=== PATIENT | male | born 1960 | race Caucasian/White ===

== ENCOUNTER 2023-07-06 13:38 | Outpatient (POV) | payer BC, SELFPAY ==
--- OUTSIDE RECORDS SUMMARY | 2023-07-06 13:43 | XMS_ITS ---
Author Name Unknown Address [address] [place] [address] Phone Organization [facility] Address [address] [place] [address] Phone Care Team Providers Care Reception Centre Manager Name Role Phone NO, PCP Unavailable Unavailable Dhruv STEVENS, David Lundberg Unavailable [phone] Problems Includes: Active, inactive, and resolved Problems All Visits Onset Date Resolved Date Provider Condition S tatus Bone Pain Right Fingers 01/10/2022 David Bartlett MD Active Last Documented On 2 12:55PM ; [facility] Pain in the Right Hand Only 01/10/2022 David Bartlett MD Active Last Documented On 2 12:54PM ; [facility], [facility] Plan of Treatment Instructions to patient Lose weight Last Documented On 2 1:51PM ; [facility], [facility] Lose weight Last Documented On 2 12:54PM ; [facility], [facility] Lose weight Last Documented On 2 1:15PM ; [facility], [facility] Assessments Includes: Assessments for all patient encounters No Assessments Recorded Instructions Includes: Instructions for all patient encounters Instructions to patient Lose weight Last Documented On 2 1:51PM ; [facility] Lose weight Last Documented On 2 12:54PM ; [facility], [facility] Lose weight Last Documented On 2 1:15PM ; [facility], [facility] Medical Equipment - Implanted Devices Includes: Current and historical Devices No Medical Equipment Recorded Medications Includes: Current and historical Medications Current Medications (continue as prescribed) Cephalexin 500 MG Oral Capsule 01/06/2022 Provider: Elham SANDOVAL Diagnosis: Last Documented On 12:54PM By Dr. Bartlett ; [facility], [facility] OneTouch Delica Plus [id number] Miscellaneous Provider: Dillon Lindquist MD Diagnosis: Last Documented On 12:55PM By Dr. Bartlett ; [facility], [facility] Diclofenac Sodium 1% External Gel 12/31/2021 Provide r: Diagnosis: Last Documented On 12:55PM By Dr. Bartlett ; [facility], [facility] Vitamin D High Potency 25 MCG (1000 UT) Oral Capsule 0 12/09/2021 Provider: Diagnosis: Last Documented On 12:56PM By Ashley Glass ; [facility], [facility] Cyclobenzaprine HCl 10 MG Oral Tablet 12/06/2021 Pro vider: Diagnosis: Last Documented On 2 12:56PM By Ashley Glass ; [facility], [facility] hydroCHLOROthiazide 25 MG Oral Tablet 12/06/2021 Pro vider: Diagnosis: Last Documented On 12:56PM By Ashley Glass ; [facility], [facility] Omeprazole 20 MG Oral Capsule Delayed Release 12/07/19 Provider: Diagnosis: Last Documented On 2 12:56PM By Ashley Glass ; [facility], [facility] Lisinopril 20 MG Oral Tablet 10/13/2021 Provider: Diagnosis: Last Documented On 2 12:56PM By Ashley Glass ; [facility], [facility] Albuterol Sulfate HFA 108 (9 0 Base) MCG/ACT Inhalation Aerosol Solution 09/11/2021 Provider: Diagnosis: Last Documented On 12:56PM By Ashley Glass ; [facility], [facility] Past Medications on file Cephalexin 500 MG Oral Capsule 01/06/2022 - 01/10/2022 Provider: Elham SANDOVAL Diagnosis: Last Documented On 2 1:16PM By Ashley Glass ; [facility], [facility] Diclofenac Sodium 1% External Gel 12/31/2021 - 022 Provider: Diagnosis: Last Documented On 2 1:16PM By Ashley Glass ; [facility], [facility] Vitamin D High Potency 25 MC G (1000 UT) Oral Capsule 12/09/2021 - 01/10/2022 Provider: Diagnosis: Last Documented On 2 1:16PM By Ashley Glass ; [facility], [facility] hydroCHLOROthiazide 25 MG Oral Tablet 12/06/2021 - Provider: Diagnosis: Last Documented On 2 1:16PM By Ashley Glass ; [facility], [facility] Omeprazole 20 MG Oral Capsule Delayed Release 12/07/19 22 - 01/10/2022 Provider: Diagnosis: Last Documented On 2 1:16PM By Ashley Glass ; [facility] Medications Administered Includes: Administered Medications in patient's chart No Administered Medications Recorded Results Includes: Results from 07/05/2022 through 07/06/2023 No Results Recorded For Specified Dates History of Present Illness History of Present Illness not supported for this document type No History of Present Illness Recorded Social History Description Last Updated Caffeine use 01/10/2022 Last Documented On 2 3:08PM ; [facility], [facility] No recent change in diet 01/10/2022 Last Documented On 2 3:08PM ; [facility], [facility] Not a current smoker. 01/10/2022 Last Documented On 2 3:08PM ; [facility] Not exercising regularly 01/10/2022 Last Documented On 2 3:08PM ; [facility] Not using alcohol 01/10/2022 Last Documented On 2 3:08PM ; [facility] Not using drugs 01/10/2022 Last Documented On 2 3:08PM ; [facility] Tobacco non-user 01/10/2022 Last Documented On 2 3:08PM ; [facility], [facility] Smoking Status Unknown Procedures and Surgical History Surgical History Last Updated History of hernia repair 01/10/2022 Last Documented On 2 3:08PM ; [facility] Medical History Includes: Medical History in patient's chart Description Last Updated History of Hypertension 01/10/2022 Last Documented On 2 3:08PM ; [facility] Past Surgical History: cariodid tumor Last Documented On 2 3:08PM ; [facility] No recent immunization for flu 2 Last Documented On 2 3:08PM ; [facility] No recent immunization for pneumococcal pneumonia 01/10/2022 Last Documented On 2 3:08PM ; [facility] Family History Includes: Family History in patient's chart Description Last Updated Diabetes mellitus 01/10/2022 Last Documented On 2 3:08PM ; [facility] Family history of cancer 01/10/2022 Last Documented On 2 3:08PM ; [facility] Family history of heart disease 01/11/20 22 Last Documented On 2 3:08PM ; [facility] Family history of systemic hypertension 01/10/2022 Last Documented On 2 3:08PM ; [facility] Review of Systems Review of Systems not supported for this document type No Review of Systems Recorded Mental Status Description No anxiety Functional Status No Functional Status Recorded Physical Exam Physical Exam not supported for this document type No Physical Exam Recorded Immunizations Includes: Immunizations in patient's chart Vaccine Dose # Date Site Reaction(s) Status Source Influenza 1 01/10/2022 Complete (Refused - Patient objection) [facility] Last Documented On 2 1:15PM ; [facility] Allergies Includes: Active, inactive, and resolved Allergies Substance Type Reaction Onset Date Resolved Date Statu s Tetracycline HCl Allergy Skin Rashes / E ruption of skin, Hives / Urticaria, Shortness of Breath / Dyspnea 01/10/2022 Active Last Documented On 2 1:50PM ; [facility] metFORMIN HCl Allergy Nausea, Vomiting , Diarrhea / Diarrheal disorder 01/10/2022 Active Last Documented On 2 1:50PM ; [facility], [facility] Insurance Includes: Active Insurance Policies Plan Name Member ID Group # Subscriber Relationship Effect [id number] Dates 1 - STRATEGIC COMP [id number] Deng Santino Self 01/01/2022 - Unknown Clinical Notes Includes: Signed Clinical Notes starting from 03/03/2022 No Clinical Notes Recorded
--- OUTSIDE RECORDS SUMMARY | 2023-07-06 13:43 | XMS_ITS | Clinical Summary ---
Author Name Unknown Address [address] [place] [address] Phone Organization [facility] Address [address] [place] [address] Phone Care Team Providers Care Finishing Operator Name Role Phone Status, Fax Unavailable Conditions or Problems Problem Name Problem Code Onset Date Status Entry Date Provider Comment Standard Description Annotate HEPATITIS 604527329 (SNOMED CT) 04/08 Active 04/08 Beny Wooten MD Inflammatory disease of liver FATIGUE 77226864 (SNOMED CT) Active Julia Soriano Fatigue NIGHT SWEATS 38930379 (SNOMED CT) Active Julia Soriano Night sweats LUNG CALCIFICATION J98.4 (ICD-10-CM) Active Julia Soriano Other disorders of lung Medications Medication Instructions Start Date Stop Date Generic Name ND Provider LIVALO 2 MG TABS PITAVASTATIN CALCIUM [id number] Beny Wooten MD BECONASE AQ SUSPENSION 12/25 BECLOMETHASONE DIPROP MONOHYD SUSP [id number] Beny Wooten MD NAPROSYN TABS 12/25 NAPROXEN TABS [id number] Beny Wooten MD BECONASE AQ SUSPENSION 06/18 BECLOMETHASONE DIPROP MONOHYD SUSP [id number] Staci Gilliam NAPROSYN TABS 12/25 NAPROXEN TABS [id number] Staci Gilliam CETIRIZINE HCL TABS CETIRIZINE HCL TABS [id number] Staci Gilliam KLOR-CON CR-TABS POTASSIUM CHLORIDE CR-TABS [id number] Staci Gilliam FIORICET TABS [id number] EINE TABS [id number] Staci Gilliam NASONEX SUSPENSION MOMETASONE FUROATE SUSP 92997574957 Staci Gilliam LISINOPRIL TABS LISINOPRIL TABS [id number] Staci Gilliam ASPIRIN TABS ASPIRIN TABS [id number] Staci Gilliam PATANOL SOLUTION OLOPATADINE HCL SOLN [id number] Staci Gilliam HYDROCHLOROTHIAZIDE TABS HYDROCHLOROTHIAZIDE TABS [id number] Staci Gilliam Medications Administered No information available. 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33 10*3/uL 0.10-0.30 H Eosinophi ls [#/volume] in Blood MONOCYTABMAN 0.81 K/MCL {Cells}/ uL 0.00-1.00 N monocytes, absolute, manual LYMPHSABSMAN 3.14 K/MCL {Cells}/ uL 0.60-4.80 N lymphocytes, absolute, manual ABS NEUTROPH 8.68 10*3/uL 1.50-8.30 H Neutro phils [#/volume] in Blood PLATELETS 175 10*3/mm3 150-450 N Platelets [#/volume] in Blood by Automated count RDW_ 12.1 11.3-14.5 N RDW, no uni ts MCHC 36.2 G/DL 32.0-36.0 H MCHC [Mass/ volume] by Automated count MCH 32.1 pg 27.0-31.0 H MCH [Entiti c mass] by Automated count MCV 88.8 fL 80.0-99.0 N MCV [Entiti c volume] by Automated count HCT 45.9 % 38.9-50.9 N Hematocrit [Volume Fraction] of Blood by Automated count HGB 16.6 g/dL 13.1-17.5 N Hemoglobin [Mass/volume] in Blood RBC 5.17 M/MCL 10*6/mm3 4.20-5.76 N Erythro cytes [#/volume] in Blood by Automated count WBC 13.09 10*3/mm3 3.50-10.80 H Leukocyte s [#/volume] in Blood by Automated count Lab Report: ESR (Sed Rate) ESR 3 mm/h 0-15 N Erythrocyte sedimentation rate by Westergren method Lab Report: Comprehensive Me tabolic Panel ANIONGAP 6 mmol/L 3-11 N anion gap, s farhana GFRC 114 mL/min/1 .73m2 Glomerular Filtration Rate Calculation ALBUMIN 5.0 g/dL 3.4-4.8 H Albumin [Mass/volume] in Serum or Plasma BILI TOTAL 0.8 mg/dL 0.3-1.2 N Bilirubin. total [Mass/volume] in Serum or Plasma SGPT (ALT) 70 U/L 7-40 H Alanine aminotransferase [Enzymatic activity/volume] in Serum or Plasma SGOT (AST) 42 U/L 8-33 H Aspartate aminotransferase [Enzymatic activity/volume] in Serum or Plasma ALK PHOS 67 U/L 25-100 N Alkaline phosphatase [Enzymatic activity/volume] in Blood CALCIUM 10.0 mg/dL 8.7-10.4 N Calcium [Moles/volume] in Serum or Plasma CO2 35 mmol/L 20-31 H Carbon dioxid e, total [Moles/volume] in Venous blood CHLORIDE 97 mmol/L 98-107 L Chloride [Moles/volume] in Serum or Plasma POTASSIUM 3.3 mmol/L 3.4-5.4 L Potassium [Moles/volume] in Serum or Plasma SODIUM 138 mmol/L 136-145 N Sodium [Moles/volume] in Serum or Plasma CREATININE 0.8 mg/dL 0.6-1.3 N Creatinine [Mass/volume] in Serum or Plasma BUN 14 mg/dL 6-20 N Urea nitrogen [Mass/volume] in Serum or Plasma GLUCOSE SER 74 mg/dL 70-100 N Glucose [Mass/volume] in Serum or Plasma Lab Report: Ferritin FERRITIN 524 ng/mL 22-322 H Ferritin [Mass/volume] in Serum or Plasma Lab Report: C-Reactive Prote in CRPCARDRISK 5.300 mg/L 0.000-10.0 N C reac tive protein [Mass/volume] in Serum or Plasma Lab Report: Blastomyces Anti gen, QuantiFERON TB Gold (In Tube), QuantiFE ... ANASCR IFA Negative JOSEPH SCREE N, IFA HIS AG UR 0.00 EU {EIA'U} Histoplasma capsulatum Ag [Units/volume] in Urine by Immunoassay TB QUANT Negative Negative Mycobacter ium tuberculosis stimulated gamma interferon [Interpretation] in Blood Qualitative Lab Report: Angiotensin-Conv erting Enzyme, Written Authorization ADRI 13 U/L 12-68 Angiotensin converting enzyme [Enzymatic activity/volume] in Serum or Plasma Lab Report: CINDY and PE, Seru m, Panel [id number], Hep B Surface Ab, HCV Antib ... ANTI-HAV Positive Negative A Hepatitis A virus Ab [Presence] in Serum HBSAGC Negative Negative Hepatitis B virus surface Ag [Presence] in Serum or Plasma by Confirmatory method RPR Non Reactive NonRea<1:1 Reagi n Ab [Units/volume] in Serum by VDRL [id number] <0.1 s/co ratio 0.0-0.9 GE use only - fo r [employer] import when terms are not otherwise specified HIV AB Non Reactive Non Reactive HIV 1 p15+p18 Ab [Presence] in Serum by Immunoblot IMMUNOFIX IFENOR immunofixat ion electrophoresis, serum A/G RATIO 1.4 0.7-2.0 Albumin/Zak bulin [Mass Ratio] in Serum or Plasma GLOBULIN TOT 3.4 g/dL 2.0-4.5 Globulin [Mass/volume] in Serum M.SPIKE Not Observed Not Observed gamma globulin, serum, monoclonal spike GAMMA GLOB 1000 mg/dL Units converted. See lab report for original value. Gamma globulin [Mass/volume] in Serum or Plasma by Electrophoresis BETA GLOBUL 1.3 g/dL 0.6-1.3 Beta glob ulin [Mass/volume] in Serum or Plasma by Electrophoresis ALPHA 2 GLOB 0.7 g/dL 0.4-1.2 Alpha 2 globulin [Mass/volume] in Serum or Plasma by Electrophoresis ALPHA 1 GLOB 0.3 g/dL 0.1-0.4 Alpha 1 globulin [Mass/volume] in Serum or Plasma by Electrophoresis ALBUMIN EOP 4.7 g/dL 3.2-5.6 Albumin [Mass/volume] in Serum or Plasma by Electrophoresis PROTEIN, TOT 8.1 g/dL 6.0-8.5 Protein [Mass/volume] in Serum or Plasma IGM SERUM 189 mg/dL 40-230 IgM, serum IGA SERUM 248 mg/dL 91-414 IgA, serum IGG SERUM 906 mg/dL 700-1600 IgG, serum Lab Report: Protein Electro, Random Urine GLOBULIN UR 26.9 % gamma zak bulin, urine BETA UR PE 28.5 % beta globu fermin, urine, by electrophoresis ALPH-2 UR PE 17.5 % alpha-2 globulin, urine by electrophoresis ALPH-1 UR PE 2.6 % alpha-1 globulin, urine, by electrophoresis ALBUMIN, UR 24.5 % albumin, urine PROTEIN UR 8.5 mg/dL 0.0-15.0 Protein [ Mass] in Urine collected for unspecified duration Office Visit: 6 DIET RULES EXAMINER yes Dietary management education, guidance, and counseling (procedure) MEDS REVIEW Done Documenta tion of current medications (procedure) Lab Report: Culture Fungus B lood CULTURE Specimen: Blood culture, comment Plan of Care Type Date Detail Pending order Other Pending order HIV By MIGUEL ÁNGEL Pending order Hep C AB Pending order Hep B Surface AG Pending order Hep B Surface AB Pending order Hep A Total AB Pending order RPR Pending order C- reactive prot ein Pending order Sedimentation Ra te (ESR) Pending order Blood Cultures X 2 Pending order CMP Pending order CBC with Differe ntial Pending order JOSEPH Pending order Ferritin Level Pending order ADRI Pending order TSH Pending order Histoplasmosis U rinary AG Pending order Blastomyces Urin coty Antigen Pending order Quantiferon Gold TB Assay Pending order Other Procedures Code Procedure Name Date Entry Date CPT-LAB Other CPT-53482 HIV By MIGUEL ÁNGEL CPT-90673 Hep C AB CPT-56854 Hep B Surface AG CPT-41320 Hep B Surface AB CPT-50868 Hep A Total AB CPT-66731 RPR CPT-03099 C- reactive protein CPT-42108 Sedimentation Rate (ESR) 201 05/28/07 CPT-bcx2 Blood Cultures X2 CPT-93295 CMP CPT-69417 CBC with Differential CPT-12796 JOSEPH CPT-48580 Ferritin Level CPT-22809 ADRI CPT-33854 TSH CPT-02323 Histoplasmosis Urinary AG 20 31/12/07 CPT-18258 Blastomyces Urinary Antigen CPT-07854 Quantiferon Gold TB Assay 20 31/12/07 CPT-LAB Other Vital Signs Date Name Value Unit Description BMI (Body Mass Index) 34.88 kg/m2 Bod y Mass Index (Ratio) Body Temperature 98.0 [degF] temperat ure E&M BP Diastolic 78 mm[Hg] blood pressu re, diastolic BP Systolic 112 mm[Hg] blood pressur e, systolic Heart Rate 80 /min pulse rate Height 63 [in_us] height E&M Respiratory Rate 20 /min respirat ory rate E&M Weight Measured 196.2 [lb_av] weight E& M Immunizations No information available. Advance Directives No information available.
--- OUTSIDE RECORDS SUMMARY | 2023-07-06 13:44 | XMS_ITS | Clinical Summary ---
Author Name Unknown Address [address] [place] [address] Phone Organization [facility] Address [address] [place] [address] Phone Care Team Providers Care Floral Designer Name Role Phone NO, PCP Unavailable Unavailable Dhruv STEVENS, David Lundberg Unavailable [phone] Reason for Visit and Chief Complaint The Chief Complaint is: RLF and RRF pain Problems Includes: Problems addressed during this encounter and other active Problems Current Visit Onset Date Resolved Date Provider Neva bernal Status Bone Pain Right Fingers 01/10/2022 David Bartlett MD Active Last Documented On 2 12:55PM ; [facility] Pain in the Right Hand Only 01/10/2022 David Bartlett MD Active Last Documented On 2 12:54PM ; [facility] Plan of Treatment I explained to the patient that he does have a tuft fracture of the distal phalanx RRF and contusion RLF. We discussed the course of treatment including splinting. We will order placement of a mallet splint from OT for the RRF. We will place the patient on no use of the RUE at work. We will see him back in 2 weeks for recheck. - Last Documented On 01/16/2022 3:08PM ; [facility] Pending Tests Order Diagnosis Results Due Ordering P rovider Therapy - Occupational Therapy Finger 01/10 David Bartlett MD Last Documented On 2 3:08PM ; [facility] Instructions to patient Lose weight Last Documented On 2 1:15PM ; [facility] Assessments Includes: Assessments from this encounter Findings RRF tuft fx distal phalanx - Last Documented On 01/16/2022 3:08PM ; [facility] contusion RLF - Last Documented On 01/16/2022 3:08PM ; [facility] Instructions Includes: Instructions from this encounter Instructions to patient Lose weight Last Documented On 2 1:15PM ; [facility] Medical Equipment - Implanted Devices Includes: Current Devices No Medical Equipment Recorded Medications Includes: Medications discussed during this encounter and other current Medications Discontinued / Stopped on this date Elham SANDOVAL on 01/06/2022 Cephalexin 500 MG Oral Capsule Provider: Elham SANDOVAL Diagnosis: Last Documented On 2 1:16PM By Ashley Glass ; [facility] Diclofenac Sodium 1% External Gel Provide r: Diagnosis: Last Documented On 2 1:16PM By Ashley Glass ; [facility] Vitamin D High Potency 25 MCG (1000 UT) Oral Capsule Provider: Diagnosis: Last Documented On 2 1:16PM By Ashley Glass ; [facility] hydroCHLOROthiazide 25 MG Oral Tablet Pro vider: Diagnosis: Last Documented On 2 1:16PM By Ashley Glass ; [facility] Omeprazole 20 MG Oral Capsule Delayed Release Provider: Diagnosis: Last Documented On 2 1:16PM By Ashley Glass ; [facility] Current Medications (continue as prescribed) Cephalexin 500 MG Oral Capsule 01/06/2022 Provider: Elham SANDOVAL Diagnosis: Last Documented On 12:54PM By Dr. Bartlett ; [facility] OneTouch Delica Plus [id number] Miscellaneous Provider: Dillon Lindquist MD Diagnosis: Last Documented On 12:55PM By Dr. Bartlett ; [facility] Diclofenac Sodium 1% External Gel 12/31/2021 Provide r: Diagnosis: Last Documented On 10/24/202 2 12:55PM By Dr. Bartlett ; [facility] Vitamin D High Potency 25 MCG (1000 UT) Oral Capsule 0 12/09/2021 Provider: Diagnosis: Last Documented On 12:56PM By Ashley Glass ; [facility] Cyclobenzaprine HCl 10 MG Oral Tablet 12/06/2021 Pro vider: Diagnosis: Last Documented On 12:56PM By Ashley Glass ; [facility] hydroCHLOROthiazide 25 MG Oral Tablet 12/06/2021 Pro vider: Diagnosis: Last Documented On 12:56PM By Ashley Glass ; [facility] Omeprazole 20 MG Oral Capsule Delayed Release 12/07/19 Provider: Diagnosis: Last Documented On 12:56PM By Ashley Glass ; [facility] Lisinopril 20 MG Oral Tablet 10/13/2021 Provider: Diagnosis: Last Documented On 12:56PM By Ashley Glass ; [facility] Albuterol Sulfate HFA 108 (9 0 Base) MCG/ACT Inhalation Aerosol Solution 09/11/2021 Provider: Diagnosis: Last Documented On 12:56PM By Ashley Glass ; [facility] Medications Administered Includes: Administered Medications from this encounter No Administered Medications Recorded Vital Signs Includes: Vital Signs from this encounter Vital Name 01/10/2022 01:12P Blood Pressure Sitting (mmHg) 118/71 Pulse Rate-Sitting (bpm) 105 Height (in) 63 Weight (lb) 199.8 Body Mass Index (kg/m2) 35.4 Body Surface Area (m2) 1.9 Note: [facility] Last Documented: On 01/10/2022 1:15PM ; [facility] Results Includes: Results discussed during this encounter No Results Recorded For Specified Dates History of Present Illness Includes: History of Present Illness from this encounter KADY De is a 61 year old male. 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 Patient is a 61 year old male that is here today with complaints of pain in the RRF and RLF. He states on 01/01/22 he was at work when he raised one eng of a part with left hand to move a block with his right hand when the part slipped out of left hand catching R hand between the part and the block. He was seen at [facility] where xrays were obtained and the laceration of the RRF was sutured. Social History Description Last Updated Caffeine use 01/10/2022 Last Documented On 2 3:08PM ; [facility] No recent change in diet 01/10/2022 Last Documented On 2 3:08PM ; [facility] Not a current smoker. 01/10/2022 Last Documented On 2 3:08PM ; [facility] Not exercising regularly 01/10/2022 Last Documented On 2 3:08PM ; [facility] Not using alcohol 01/10/2022 Last Documented On 2 3:08PM ; [facility] Not using drugs 01/10/2022 Last Documented On 2 3:08PM ; [facility] Tobacco non-user 01/10/2022 Last Documented On 2 3:08PM ; [facility] Smoking Status Unknown Procedures and Surgical History Includes: Procedures from this encounter Procedures Code Diagnosis Performing Provider Service L ocation Service Date use of tobacco assessment performed 1000F Last Documented On 2 12:55PM ; [facility] no influenza immunization patient refuse d Last Documented On 2 1:15PM ; [facility] an X-ray was performed 41224 Last Documented On 2 1:50PM ; [facility] History of Blood Tests Last Documented On 2 1:50PM ; [facility] Surgical History Last Updated History of hernia repair 01/10/2022 Last Documented On 2 3:08PM ; [facility] Medical History Includes: Medical History addressed during this encounter Description Last Updated History of Hypertension 01/10/2022 Last Documented On 2 3:08PM ; [facility] Past Surgical History: cariodid tumor Last Documented On 2 3:08PM ; [facility] No recent immunization for flu 2 Last Documented On 2 3:08PM ; [facility] No recent immunization for pneumococcal pneumonia 01/10/2022 Last Documented On 2 3:08PM ; [facility] Family History Includes: Family History addressed during this encounter Description Last Updated Diabetes mellitus 01/10/2022 Last Documented On 2 3:08PM ; [facility] Family history of cancer 01/10/2022 Last Documented On 2 3:08PM ; [facility] Family history of heart disease 01/11/20 Last Documented On 2 3:08PM ; [facility] Family history of systemic hypertension 01/10/2022 Last Documented On 2 3:08PM ; [facility] Review of Systems Includes: Review of Systems from this encounter Systemic: Not feeling tired, no recent weight loss, and no recent weight gain. Head: No headache and no sinus pain. Eyes: No vision problems, no Cataracts, no Glasses/Contacts, and no Glaucoma. Otolaryngeal: No hearing loss and no tinnitus. Cardiovascular: No chest pain or discomfort and no palpitations. Hypertension. No High Cholesterol. Pulmonary: No daytime asthma symptoms and no chronic cough. No wheezing. Gastrointestinal: No heartburn and no abdominal pain. No Indigestion, no Acid Reflux, no Peptic Ulcer, no GI Stomach Bleed, and no Ulcers. Endocrine: No hot flashes, no muscle weakness, no Diabetes, no Hypothyroid, and no Hyperthyroid. Hematologic: No easy bleeding, no tendency for easy bruising, and no Anemia. Musculoskeletal: No Arthritis and no lower back pain. No soft tissue swelling and no localized joint pain. Neurological: No dizziness, no convulsions, and no numbness. Psychological: No anxiety, no emotional lability, no depression, and no insomnia. Not crying for no reason. Skin: No dry skin. No Ulcers, no Scars, and no rash. Allergic and Immunologic: Complaint of seasonal allergic reaction. The patient is awake alert oriented in time place and person. Has normal mood and affect. Is neatly dressed. Has normal gait and station. Pupils are equal and react to light normally. Eyes move normally. Mucous membranes are moist. The patient has no trouble with speech. Normal circulation. Normal sensation. No thenar or intrinsic atrophy. Normal strength. Laceration top of the RRF that is sutured. No sign of infection. There is tenderness over the fracture site. Patient has a contusion RLF with a small subungual hematoma RLF. Mental Status Includes: Mental Status from this encounter Description No anxiety Functional Status Includes: Functional Status from this encounter No Functional Status Recorded Physical Exam Includes: Physical Exam from this encounter Immunizations Includes: Immunizations addressed during this encounter Vaccine Dose # Date Site Reaction(s) Status Source Influenza 1 01/10/2022 Complete (Refused - Patient objection) [facility] Last Documented On 2 1:15PM ; [facility] Allergies Includes: Active Allergies Substance Type Reaction Onset Date Resolved Date Statu s Tetracycline HCl Allergy Skin Rashes / E ruption of skin, Hives / Urticaria, Shortness of Breath / Dyspnea 01/10/2022 Active Last Documented On 2 1:50PM ; [facility] metFORMIN HCl Allergy Nausea, Vomiting , Diarrhea / Diarrheal disorder 01/10/2022 Active Last Documented On 2 1:50PM ; [facility] Encounters Encounter Provider Location Date Check-In Time Check-Out Time Diagnosis WC NEW PATIENT David Bartlett MD [facility] 01/11/20 22 1:05PM 1:42PM Insurance Includes: Active Insurance Policies Plan Name Member ID Group # Subscriber Relationship Effect janneth Dates 1 - STRATEGIC COMP [id number] Deng De Self 01/01/2022 - Unknown Clinical Notes Includes: Clinical Notes from this encounter No Clinical Notes Recorded
--- OUTSIDE RECORDS SUMMARY | 2023-07-06 13:44 | XMS_ITS | Clinical Summary ---
Author Name Unknown Address [address] [place] [address] Phone Organization [facility] Address [address] [place] [address] Phone Care Team Providers Care Director Of Cloud Services Name Role Phone NO, PCP Unavailable Unavailable Dhruv STEVENS, David Lundberg Unavailable [phone] Reason for Visit and Chief Complaint The Chief Complaint is: RLF and RRF pain Problems Includes: Problems addressed during this encounter and other active Problems All Visits Onset Date Resolved Date Provider Condition S tatus Bone Pain Right Fingers 01/10/2022 David Bartlett MD Active Last Documented On 2 12:55PM ; [facility] Pain in the Right Hand Only 01/10/2022 David Bartlett MD Active Last Documented On 2 12:54PM ; [facility], [facility] Plan of Treatment Patient is doing well and the fracture is healing. We will continue his work restrictions, continue the splint, and we will see him back in 2 weeks for recheck. We will not need an xray at this visit. - Last Documented On 01/25/2022 11:31AM ; [facility], [facility] Instructions to patient Lose weight Last Documented On 2 12:54PM ; [facility], [facility] Assessments Includes: Assessments from this encounter Findings RRF distal phalanx tuft fx - Last Documented On 01/25/2022 11:31AM ; [facility], [facility] Instructions Includes: Instructions from this encounter Instructions to patient Lose weight Last Documented On 2 12:54PM ; [facility] Medical Equipment - Implanted Devices Includes: Current Devices No Medical Equipment Recorded Medications Includes: Medications discussed during this encounter and other current Medications Current Medications (continue as prescribed) Cephalexin 500 MG Oral Capsule 01/06/2022 Provider: Elham SANDOVAL Diagnosis: Last Documented On 12:54PM By Dr. Bartlett ; [facility] OneTouch Delica Plus [id number] Miscellaneous Provider: Dillon Lindquist MD Diagnosis: Last Documented On 12:55PM By Dr. Bartlett ; [facility], [facility] Diclofenac Sodium 1% External Gel 12/31/2021 Provide r: Diagnosis: Last Documented On 12:55PM By Dr. Bartlett ; [facility], [facility] Vitamin D High Potency 25 MCG (1000 UT) Oral Capsule 0 12/09/2021 Provider: Diagnosis: Last Documented On 12:56PM By Ashley Glass ; [facility] Cyclobenzaprine HCl 10 MG Oral Tablet 12/06/2021 Pro vider: Diagnosis: Last Documented On 12:56PM By Ashley Glass ; [facility] hydroCHLOROthiazide 25 MG Oral Tablet 12/06/2021 Pro vider: Diagnosis: Last Documented On 12:56PM By Ashley Glass ; [facility] Omeprazole 20 MG Oral Capsule Delayed Release 12/07/19 Provider: Diagnosis: Last Documented On 12:56PM By Ashley Glass ; [facility] Lisinopril 20 MG Oral Tablet 10/13/2021 Provider: Diagnosis: Last Documented On 12:56PM By Ashley Glass ; [facility] Albuterol Sulfate HFA 108 (9 0 Base) MCG/ACT Inhalation Aerosol Solution 09/11/2021 Provider: Diagnosis: Last Documented On 12:56PM By Ashley Glass ; [facility] Medications Administered Includes: Administered Medications from this encounter No Administered Medications Recorded Vital Signs Includes: Vital Signs from this encounter Vital Name 01/24/2022 01:02P Blood Pressure Sitting (mmHg) 125/77 Pulse Rate-Sitting (bpm) 65 Height (in) 63 Weight (lb) 201.2 Body Mass Index (kg/m2) 35.6 Body Surface Area (m2) 1.9 Note: [facility] Last Documented: On 01/24/2022 1:05PM ; [facility] Results Includes: Results discussed during this encounter No Results Recorded For Specified Dates History of Present Illness Includes: History of Present Illness from this encounter KADY De is a 61 year old male. - Allergy list reviewed - Problem list reviewed - Medication list reviewed Patient is here today for follow-up for his right ring finger tuft fracture. He is doing well today. His injury occurred on 01/01/2022. Social History Description Last Updated Caffeine use 01/10/2022 Last Documented On 2 12:54PM ; [facility] No recent change in diet 01/10/2022 Last Documented On 2 12:54PM ; [facility] Not a current smoker. 01/10/2022 Last Documented On 2 12:54PM ; [facility] Not exercising regularly 01/10/2022 Last Documented On 2 12:54PM ; [facility] Not using alcohol 01/10/2022 Last Documented On 2 12:54PM ; [facility] Not using drugs 01/10/2022 Last Documented On 2 12:54PM ; [facility] Tobacco non-user 01/10/2022 Last Documented On 2 12:54PM ; [facility], [facility] Smoking Status Unknown Procedures and Surgical History Includes: Procedures from this encounter Procedures Code Diagnosis Performing Provider Service L ocation Service Date use of tobacco assessment performed 1000F Last Documented On 2 12:54PM ; [facility] no influenza immunization patient refuse d Last Documented On 2 12:54PM ; [facility] Surgical History Last Updated History of hernia repair 01/10/2022 Last Documented On 2 12:54PM ; [facility] Medical History Includes: Medical History addressed during this encounter Description Last Updated History of Hypertension 01/10/2022 Last Documented On 2 12:54PM ; [facility], [facility] Past Surgical History: cariodid tumor Last Documented On 2 12:54PM ; [facility], [facility] No recent immunization for flu 2 Last Documented On 2 12:54PM ; [facility] No recent immunization for pneumococcal pneumonia 01/10/2022 Last Documented On 2 12:54PM ; [facility], [facility] Family History Includes: Family History addressed during this encounter Description Last Updated Diabetes mellitus 01/10/2022 Last Documented On 2 12:54PM ; [facility] Family history of cancer 01/10/2022 Last Documented On 2 12:54PM ; [facility], [facility] Family history of heart disease 01/11/20 Last Documented On 2 12:54PM ; [facility] Family history of systemic hypertension 01/10/2022 Last Documented On 2 12:54PM ; [facility], [facility] Review of Systems Includes: Review [...] No thenar or intrinsic atrophy. Normal strength. WOunds are healing well and there is no sign of infection. Sutures were removed today. Reviewed 01/24/22 Mental Status Includes: Mental Status from this encounter Description No anxiety Functional Status Includes: Functional Status from this encounter No Functional Status Recorded Physical Exam Includes: Physical Exam from this encounter Allergies Includes: Active Allergies Substance Type Reaction Onset Date Resolved Date Statu s Tetracycline HCl Allergy Skin Rashes / E ruption of skin, Hives / Urticaria, Shortness of Breath / Dyspnea 01/10/2022 Active Last Documented On 2 1:50PM ; [facility] metFORMIN HCl Allergy Nausea, Vomiting , Diarrhea / Diarrheal disorder 01/10/2022 Active Last Documented On 2 1:50PM ; [facility], [facility] Encounters Encounter Provider Location Date Check-In Time Check-Out Time Diagnosis WC FOLLOW UP/EST David Bartlett MD [facility] 01/25/20 12:44PM 1:29PM Insurance Includes: Active Insurance Policies Plan Name Member ID Group # Subscriber Relationship Effect janneth Dates 1 - STRATEGIC COMP [id number] Deng De Self 01/01/2022 - Unknown Clinical Notes Includes: Clinical Notes from this encounter No Clinical Notes Recorded
--- OUTSIDE RECORDS SUMMARY | 2023-07-06 13:44 | XMS_ITS ---
Care Plan - [facility], [facility] Created on: July 06, 2023 Deng De : 1960 Sex: Male Author Name Unknown Address [address] [place] [address] [place] [address] Phone Organization [facility] Address [address] [place] [address] Phone Care Team Providers Care Furnace Door Tender Name Role Phone NO, PCP Unavailable Unavailable Dhruv STEVENS, David Lundberg Unavailable [phone]
--- OUTSIDE RECORDS SUMMARY | 2023-07-06 13:44 | XMS_ITS | Clinical Summary ---
Author Name Unknown Address [address] [place] [address] Phone Organization [facility] , [facility] Address [address] [place] [address] Phone Care Team Providers Care Tents Assembler Name Role Phone NO, PCP Unavailable Unavailable Dhruv STEVENS, David Lundberg Unavailable [phone] Reason for Visit and Chief Complaint The Chief Complaint is: RLF and RRF pain Problems Includes: Problems addressed during this encounter and other active Problems All Visits Onset Date Resolved Date Provider Condition S tatus Bone Pain Right Fingers 01/10/2022 David Bartlett MD Active Last Documented On 2 12:55PM ; [facility] Pain in the Right Hand Only 01/10/2022 David Bartlett MD Active Last Documented On 2 12:54PM ; [facility] Plan of Treatment Patient is doing well. We will have him return to work full duty per his request. He declined OT for ROM as he feels he can do this on his own. We will see him back as needed. - Last Documented On 02/15/2022 9:44PM ; [facility] Instructions to patient Lose weight Last Documented On 2 1:51PM ; [facility] Assessments Includes: Assessments from this encounter No Assessments Recorded Instructions Includes: Instructions from this encounter Instructions to patient Lose weight Last Documented On 2 1:51PM ; [facility] Medical Equipment - Implanted Devices Includes: Current Devices No Medical Equipment Recorded Medications Includes: Medications discussed during this encounter and other current Medications Current Medications (continue as prescribed) Cephalexin 500 MG Oral Capsule 01/06/2022 Provider: Elham SANDOVAL Diagnosis: Last Documented On 12:54PM By Dr. Bartlett ; [facility], [facility] OneTouch Delica Plus [id number] Miscellaneous Provider: Dillon Lindquist MD Diagnosis: Last Documented On 12:55PM By Dr. Bartlett ; [facility], [facility] Diclofenac Sodium 1% External Gel 12/31/2021 Provide r: Diagnosis: Last Documented On 12:55PM By Dr. Bartlett ; [facility], [facility] Vitamin D High Potency 25 MCG (1000 UT) Oral Capsule 0 12/09/2021 Provider: Diagnosis: Last Documented On 12:56PM By Ashley Glass ; [facility], [facility] Cyclobenzaprine HCl 10 MG Oral Tablet 12/06/2021 Pro vider: Diagnosis: Last Documented On 12:56PM By Ashley Glass ; [facility], [facility] hydroCHLOROthiazide 25 MG Oral Tablet 12/06/2021 Pro vider: Diagnosis: Last Documented On 12:56PM By Ashley Glass ; [facility], [facility] Omeprazole 20 MG Oral Capsule Delayed Release 12/07/19 Provider: Diagnosis: Last Documented On 12:56PM By Ashley Glass ; [facility], [facility] Lisinopril 20 MG Oral Tablet 10/13/2021 Provider: Diagnosis: Last Documented On 12:56PM By Ashley Glass ; [facility], [facility] Albuterol Sulfate HFA 108 (9 0 Base) MCG/ACT Inhalation Aerosol Solution 09/11/2021 Provider: Diagnosis: Last Documented On 12:56PM By Ashley Glass ; [facility], [facility] Medications Administered Includes: Administered Medications from this encounter No Administered Medications Recorded Results Includes: Results discussed during this encounter [...] Caffeine use 01/10/2022 Last Documented On 2 1:51PM ; [facility], [facility] No recent change in diet 01/10/2022 Last Documented On 2 1:51PM ; [facility], [facility] Not a current smoker. 01/10/2022 Last Documented On 2 1:51PM ; [facility], [facility] Not exercising regularly 01/10/2022 Last Documented On 2 1:51PM ; [facility], [facility] Not using alcohol 01/10/2022 Last Documented On 2 1:51PM ; [facility], [facility] Not using drugs 01/10/2022 Last Documented On 2 1:51PM ; [facility], [facility] Tobacco non-user 01/10/2022 Last Documented On 2 1:51PM ; [facility] Smoking Status Unknown Procedures and Surgical History Includes: Procedures from this encounter Procedures Code Diagnosis Performing Provider Service L ocation Service Date use of tobacco assessment performed 1000F Last Documented On 2 1:51PM ; [facility], [facility] no influenza immunization patient refuse d Last Documented On 2 1:51PM ; [facility], [facility] Surgical History Last Updated History of hernia repair 01/10/2022 Last Documented On 2 1:51PM ; [facility], [facility] Medical History Includes: Medical History addressed during this encounter Description Last Updated History of Hypertension 01/10/2022 Last Documented On 2 1:51PM ; [facility], [facility] Past Surgical History: cariodid tumor Last Documented On 2 1:51PM ; [facility], [facility] No recent immunization for flu 2 Last Documented On 2 1:51PM ; [facility], [facility] No recent immunization for pneumococcal pneumonia 01/10/2022 Last Documented On 2 1:51PM ; [facility], [facility] Family History Includes: Family History addressed during this encounter Description Last Updated Diabetes mellitus 01/10/2022 Last Documented On 2 1:51PM ; [facility] Family history of cancer 01/10/2022 Last Documented On 2 1:51PM ; [facility] Family history of heart disease 01/11/20 22 Last Documented On 2 1:51PM ; [facility] Family history of systemic hypertension 01/10/2022 Last Documented On 2 1:51PM ; [facility] Review of Systems Includes: Review [...] and there is no sign of infection. He cannot make a full fist today. Reviewed 02/07/22 Mental Status Includes: Mental Status from this encounter Description No anxiety Functional Status Includes: Functional Status from this encounter No Functional Status Recorded Physical Exam Includes: Physical Exam from this encounter No Physical Exam Recorded Allergies Includes: Active Allergies Substance Type Reaction Onset Date Resolved Date Statu s Tetracycline HCl Allergy Skin Rashes / E ruption of skin, Hives / Urticaria, Shortness of Breath / Dyspnea 01/10/2022 Active Last Documented On 2 1:50PM ; [facility], [facility] metFORMIN HCl Allergy Nausea, Vomiting , Diarrhea / Diarrheal disorder 01/10/2022 Active Last Documented On 2 1:50PM ; [facility], [facility] Encounters Encounter Provider Location Date Check-In Time Check-Out Time Diagnosis WC FOLLOW UP/EST David Bartlett MD [facility] 02/08/20 22 1:04PM 1:51PM Insurance Includes: Active Insurance Policies Plan Name Member ID Group # Subscriber Relationship Effect janneth Dates 1 - STRATEGIC COMP [id number] Deng De Self 01/01/2022 - Unknown Clinical Notes Includes: Clinical Notes from this encounter No Clinical Notes Recorded
[2023-07-06 14:16] VITALS: BP 140/84; PULSE 74; RESP 18; O2SAT 99; BMI 36.6
--- NOTE | 2023-07-06 15:52 | EXP.PAIN.OV ---
HPI Data of Consult Patient: new to practice Consult date: 07/06/23 Requesting Physician: Thania Muniz APRN Primary Care Provider: Rashad Jones APRN Consult Narrative Reason for consult: Low back pain, right leg pain History of present illness: Mr. De is a 62 year old male who presents today as a new patient. He is a referral from Rashad Haro office. Today he rates his pain a 6 out of 10. Patient states his pain is all in his low back with radiating symptoms down his entire right extremity. Patient states this been going on since following a work related accident where a tile moved and he fell with his right foot down about a foot below the poonam. Patient does describe his pain as an aching, throbbing sensation with numbness and tingling that does interfere with his ability perform activities of daily living such as cooking and cleaning. He does state the pain is affecting his sleeping and making everything worse. Patient states the pain is worse when he is up and walking. Patient states he has had imaging done at [facility] in [place] and with Dr. Holguin however other than degenerative disc disease there were no significant findings. Patient does state that he would like improvement and has tried [id number] Tylenol and ibuprofen along with heat and ice and topicals with minimal relief. He has also been prescribed muscle relaxers. Patient states that he was going to get Toradol injections and that this would help decrease his pain however that ultimately ended up affecting his sugar. Patient stated before this all really started his A1c was 5 and by the end of the year it was at 11. He does state that his sugar is now much more controlled and the numbers are not not an issue. Patient is interested in any help that we may be able to provide. He was prescribed tramadol with minimal relief. His Dennis has been reviewed and is appropriate. We did reach out to [facility] and patient was not found to have any lumbar imaging at this location. CC: Thania Muniz APRN [facility] Disclaimer: The information contained in this section may have been updated after the patient was seen, as this information can be updated by other users. Medical History (Updated 07/06/23 @ 15:55 by Thania Muniz APRN) Umbilical hernia Inguinal hernia Carotid artery disease BPH (benign prostatic hyperplasia) Insomnia Vitamin D deficiency HLD (hyperlipidemia) Diabetes Surgical History (Updated 07/06/23 @ 14:23 by Mariana Hope RN) Hx of nasal septoplasty H/O carotid endarterectomy Family History (Updated 07/06/23 @ 14:21 by Mariana Hope RN) Other Diabetes Hypertension Social History (Updated 07/06/23 @ 15:57 by Thania Muniz APRN) Smoking Status: Unknown if ever smoked alcohol intake: never current occupational status: other Travel in the last 8 weeks: None Review of Systems Review of Systems Review of systems:: pertinent systems reviewed and negative unless documented below Review of systems (narrative): Review of Systems: General: No recent weight changes, no fever, no sleep disturbances Respiratory: No cough, no shortness of air, no recurring pulmonary infections Cardiovascular/peripheral vascular: No chest pain, no palpitations, no edema, no shortness of breath Gastrointestinal: No new onset incontinence, normal bowel movements reported Genitourinary: No new onset incontinence Musculoskeletal: Low back pain, right leg pain Psychiatric: [Normal mood/affect] Neurological: [Denies weakness in extremities], [denies balance issues] Meds Home Medications and Allergies Home Medications Medication Instructions Recorded Confirmed Type cholecalciferol (vitamin D3) 1,250 1,250 mcg PO WEEKLY 07/06/23 07/06/23 History mcg (50,000 unit) oral wafer (Replesta) glimepiride 2 mg tablet 2 mg PO DAILY Diabetes 07/06/23 07/06/23 History glyburide 2.5 mg tablet 2.5 mg PO DAILY 07/06/23 07/06/23 History hydrochlorothiazide 25 mg tablet 25 mg PO DAILY Fluid 07/06/23 07/06/23 History levocetirizine 5 mg tablet 5 mg PO DAILY 07/06/23 07/06/23 History lisinopril 20 mg tablet 20 mg PO DIRECTED BLOOD PRESSURE 07/06/23 07/06/23 History naproxen 500 mg tablet 500 mg PO BID 07/06/23 07/06/23 History omeprazole 20 mg capsule,delayed 20 mg PO DAILY GERD 07/06/23 07/06/23 History release ramelteon 8 mg tablet (Rozerem) 8 mg PO HS PRN . 07/06/23 07/06/23 History sitagliptin phosphate 100 mg 100 mg PO DAILY Diabetes 07/06/23 07/06/23 History tablet (Januvia) tamsulosin 0.4 mg capsule 0.4 mg PO DAILY URINATION 07/06/23 07/06/23 History New Prescriptions to Start Prescriptions: Allergies Allergy/AdvReac Type Severity Reaction Status Date / Time tetracycline Allergy Verified 07/06/23 14:20 metformin AdvReac Verified 07/06/23 14:20 Objective Vital signs: Pulse Resp BP Pulse Ox O2 Del Method 74 18 140/84 99 Room Air 07/06/23 14:16 07/06/23 14:16 07/06/23 14:16 07/06/23 14:16 07/06/23 14:16 Narrative: Physical Exam: General: Alert and oriented x3, no acute distress, pleasant and cooperative Lungs: Respirations even and unlabored, symmetrical chest expansion Eyes: PERRL Musculoskeletal: Flexion and extension of lumbar [spine] somewhat guarded secondary to pain, [antalgic gait noted] positive right leg raise with decreased sensation to light touch and decreased reflexes Neurological: Speech clear, no gross sensory deficit Assessment and Plan *Assessment and plan (1) Degenerative disc disease, lumbar: Status: Acute Category: Medical Code(s): M51.36 - Other intervertebral disc degeneration, lumbar region (2) Lumbar radiculopathy: Status: Acute Category: Medical Code(s): M54.16 - Radiculopathy, lumbar region (3) Right leg pain: Status: Acute Category: Medical Code(s): M79.604 - Pain in right leg Plan Patient is experiencing significant pain in his low back with radiating symptoms down his entire right extremity. Patient did have limited range of motion of his lumbar spine with a positive right leg raise and decreased sensation to light touch and decreased reflexes during today's exam. I have discussed with the patient that he may benefit from a right transforaminal epidural steroid injection. Risk and benefits were discussed with the patient and he would like to proceed forward with this plan of care. Patient has tried and failed conservative therapies including oral medication, heat and ice, topicals, recent physical therapy from February 2023 and completed in April 2023 with minimal improvement. Patient has also continued to do at home exercise and stretching that has been guided from the physical therapist with minimal improvement over the last 6 weeks. We we will order the patient a compounded cream. Patient will be submitted for a right transforaminal epidural steroid injection L4-L5 and L5-S1 under fluoroscopy. We will also reach out to [facility] in [place] and get a copy of his lumbar imaging. Patient has been instructed to contact the clinic with any concerns before the next appointment. Dr. Still has reviewed this note and agrees with this plan of care. This note was dictated using voice recognition software and make contain errors or omissions.
== END 2023-07-06 23:59 ==
LOC: SC.PAIN 13:41
PROVIDERS: PCP Registered Nurse; Visit Provider Nurse Practitioner Family
DX: M51.16 Intervertebral disc disorders with radiculopathy, lumbar region (principal); M79.604 Pain in right leg
CPT/HCPCS: 99202; G0463

== ENCOUNTER 2023-07-25 13:39 | Day surgery (SDC) | payer BC, SELFPAY ==
--- OUTSIDE RECORDS SUMMARY | 2023-07-25 13:45 | XMS_ITS ---
Care Plan - [facility], [facility] Created on: July 25, 2023 LorDeng weber : 1960 Sex: Male Author Name Unknown Address [address] [place] [address] [place] [address] Phone Organization [facility] , [facility] Address [address] [place] [address] Phone Care Team Providers Care Mental Health Aides Teacher Name Role Phone NO, PCP Unavailable Unavailable Dhruv STEVENS, David Lundberg Unavailable [phone]
--- OUTSIDE RECORDS SUMMARY | 2023-07-25 13:45 | XMS_ITS ---
Author Name Unknown Address [address] [place] [address] Phone Organization [facility] Address [address] [place] [address] Phone Care Team Providers Care Railcar Carpenter Name Role Phone NO, PCP Unavailable Unavailable Dhruv STEVENS, David Lundberg Unavailable [phone] Problems Includes: Active, inactive, and resolved Problems All Visits Onset Date Resolved Date Provider Condition S tatus Bone Pain Right Fingers 01/10/2022 David Bartlett MD Active Last Documented On 2 12:55PM ; [facility] Pain in the Right Hand Only 01/10/2022 David Bartlett MD Active Last Documented On 2 12:54PM ; [facility], [facility] Plan of Treatment Instructions to patient Lose weight Last Documented On 2 1:51PM ; [facility], [facility] Lose weight Last Documented On 2 12:54PM ; [facility], [facility] Lose weight Last Documented On 2 1:15PM ; [facility], [facility] Assessments Includes: Assessments for all patient encounters No Assessments Recorded Instructions Includes: Instructions for all patient encounters Instructions to patient Lose weight Last Documented On 2 1:51PM ; [facility] Lose weight Last Documented On 2 12:54PM ; [facility], [facility] Lose weight Last Documented On 2 1:15PM ; [facility], [facility] Medical Equipment - Implanted Devices Includes: Current and historical Devices No Medical Equipment Recorded Medications Includes: Current and historical Medications Current Medications (continue as prescribed) Cephalexin 500 MG Oral Capsule 01/06/2022 Provider: Elham SANDOVAL Diagnosis: Last Documented On 12:54PM By Dr. Bartlett ; [facility], [facility] OneTouch Delica Plus [id number] Miscellaneous Provider: Dillon Lindquist MD Diagnosis: Last Documented On 12:55PM By Dr. Bartlett ; [facility], [facility] Diclofenac Sodium 1% External Gel 12/31/2021 Provide r: Diagnosis: Last Documented On 12:55PM By Dr. Bartlett ; [facility], [facility] Vitamin D High Potency 25 MCG (1000 UT) Oral Capsule 0 12/09/2021 Provider: Diagnosis: Last Documented On 12:56PM By Ashley Glass ; [facility], [facility] Cyclobenzaprine HCl 10 MG Oral Tablet 12/06/2021 Pro vider: Diagnosis: Last Documented On 2 12:56PM By Ashley Glass ; [facility], [facility] hydroCHLOROthiazide 25 MG Oral Tablet 12/06/2021 Pro vider: Diagnosis: Last Documented On 12:56PM By Ashley Glass ; [facility], [facility] Omeprazole 20 MG Oral Capsule Delayed Release 12/07/19 Provider: Diagnosis: Last Documented On 2 12:56PM By Ashley Glass ; [facility], [facility] Lisinopril 20 MG Oral Tablet 10/13/2021 Provider: Diagnosis: Last Documented On 2 12:56PM By Ashley Glass ; [facility], [facility] Albuterol Sulfate HFA 108 (9 0 Base) MCG/ACT Inhalation Aerosol Solution 09/11/2021 Provider: Diagnosis: Last Documented On 12:56PM By Ashley Glass ; [facility], [facility] Past Medications on file Cephalexin 500 MG Oral Capsule 01/06/2022 - 01/10/2022 Provider: Elham SANDOVAL Diagnosis: Last Documented On 2 1:16PM By Ashley Glass ; [facility], [facility] Diclofenac Sodium 1% External Gel 12/31/2021 - 022 Provider: Diagnosis: Last Documented On 2 1:16PM By Ashley Glass ; [facility], [facility] Vitamin D High Potency 25 MC G (1000 UT) Oral Capsule 12/09/2021 - 01/10/2022 Provider: Diagnosis: Last Documented On 2 1:16PM By Ashley Glass ; [facility], [facility] hydroCHLOROthiazide 25 MG Oral Tablet 12/06/2021 - Provider: Diagnosis: Last Documented On 2 1:16PM By Ashley Glass ; [facility], [facility] Omeprazole 20 MG Oral Capsule Delayed Release 12/07/19 22 - 01/10/2022 Provider: Diagnosis: Last Documented On 2 1:16PM By Ashley Glass ; [facility] Medications Administered Includes: Administered Medications in patient's chart No Administered Medications Recorded Results Includes: Results from 07/24/2022 through 07/25/2023 No Results Recorded For Specified Dates History of Present Illness History of Present Illness not supported for this document type No History of Present Illness Recorded Social History Description Last Updated Caffeine use 01/10/2022 Last Documented On 2 3:08PM ; [facility], [facility] No recent change in diet 01/10/2022 Last Documented On 2 3:08PM ; [facility], [facility] Not a current smoker. 01/10/2022 Last Documented On 2 3:08PM ; [facility], [facility] Not exercising regularly 01/10/2022 Last Documented On 2 3:08PM ; [facility], [facility] Not using alcohol 01/10/2022 Last Documented On 2 3:08PM ; [facility], [facility] Not using drugs 01/10/2022 Last Documented On 2 3:08PM ; [facility], [facility] Tobacco non-user 01/10/2022 Last Documented On 2 3:08PM ; [facility], [facility] Smoking Status Unknown Procedures and Surgical History Surgical History Last Updated History of hernia repair 01/10/2022 Last Documented On 2 3:08PM ; [facility] Medical History Includes: Medical History in patient's chart Description Last Updated History of Hypertension 01/10/2022 Last Documented On 2 3:08PM ; [facility] Past Surgical History: cariodid tumor Last Documented On 2 3:08PM ; [facility] No recent immunization for flu 2 Last Documented On 2 3:08PM ; [facility] No recent immunization for pneumococcal pneumonia 01/10/2022 Last Documented On 2 3:08PM ; [facility] Family History Includes: Family History in patient's chart Description Last Updated Diabetes mellitus 01/10/2022 Last Documented On 2 3:08PM ; [facility] Family history of cancer 01/10/2022 Last Documented On 2 3:08PM ; [facility] Family history of heart disease 01/11/20 22 Last Documented On 2 3:08PM ; [facility] Family history of systemic hypertension 01/10/2022 Last Documented On 2 3:08PM ; [facility] Review of Systems Review of Systems [...] 1 01/10/2022 Complete (Refused - Patient objection) [facility] Last Documented On 2 1:15PM ; [facility] Allergies Includes: Active, inactive, and resolved Allergies Substance Type Reaction Onset Date Resolved Date Statu s Tetracycline HCl Allergy Skin Rashes / E ruption of skin, Hives / Urticaria, Shortness of Breath / Dyspnea 01/10/2022 Active Last Documented On 2 1:50PM ; [facility] metFORMIN HCl Allergy Nausea, Vomiting , Diarrhea / Diarrheal disorder 01/10/2022 Active Last Documented On 2 1:50PM ; [facility], [facility] Insurance Includes: Active Insurance Policies Plan Name Member ID Group # Subscriber Relationship Effect janneth Dates 1 - STRATEGIC COMP [id number] Deng Santino Self 01/01/2022 - Unknown Clinical Notes Includes: Signed Clinical Notes starting from 03/03/2022 No Clinical Notes Recorded
--- OUTSIDE RECORDS SUMMARY | 2023-07-25 13:45 | XMS_ITS | Clinical Summary ---
Author Name Unknown Address [phone] Phone Organization [facility] Address [address] [address] Phone Care Team Providers Care Logistics Vice President Name Role Phone Status, Fax Unavailable Conditions or Problems Problem Name Problem Code Onset Date Status Entry Date Provider Comment Standard Description Annotate HEPATITIS 360692592 (SNOMED CT) 04/08 Active 04/08 Beny Wooten MD Inflammatory disease of liver FATIGUE 40552507 (SNOMED CT) Active Julia Soriano Fatigue NIGHT SWEATS 39110081 (SNOMED CT) Active Julia Soriano Night sweats LUNG CALCIFICATION J98.4 (ICD-10-CM) Active Julia Soriano Other disorders of lung Medications Medication Instructions Start Date Stop Date Generic Name ND Provider LIVALO 2 MG TABS PITAVASTATIN CALCIUM 19938405921 Beny Wooten MD BECONASE AQ SUSPENSION 12/25 BECLOMETHASONE DIPROP MONOHYD SUSP 09451320853 Beny Wooten MD NAPROSYN TABS 12/25 NAPROXEN TABS [id number] Beny Wooten MD BECONASE AQ SUSPENSION 06/18 BECLOMETHASONE DIPROP MONOHYD SUSP 13352802180 Staci Gilliam NAPROSYN TABS 12/25 NAPROXEN TABS [id number] Staci Gilliam CETIRIZINE HCL TABS CETIRIZINE HCL TABS 12066594021 Staci Gilliam KLOR-CON CR-TABS POTASSIUM CHLORIDE CR-TABS 17661947351 Staci Gilliam FIORICET TABS HOUYTXVTHY-MZQA-UMID EINE TABS 25291681027 Staci Gilliam NASONEX SUSPENSION MOMETASONE FUROATE SUSP 95207812051 Staci Gilliam LISINOPRIL TABS LISINOPRIL TABS 95918049865 Staci Gilliam ASPIRIN TABS ASPIRIN TABS 09516865570 Staci Gilliam PATANOL SOLUTION OLOPATADINE HCL SOLN 35973352232 Staci Gilliam HYDROCHLOROTHIAZIDE TABS HYDROCHLOROTHIAZIDE TABS 33635762655 Staci Gilliam Medications Administered No information available. 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 [...] for unspecified duration Office Visit: 6 DIET STENO TYPIST yes Dietary management education, guidance, and counseling [...] Procedure Name Date Entry Date CPT-LAB Other CPT-65598 HIV By MIGUEL ÁNGEL CPT-68287 Hep C AB CPT-41847 Hep B Surface AG CPT-72113 Hep B Surface AB CPT-79219 Hep A Total AB CPT-92985 RPR CPT-52507 C- reactive protein CPT-38421 Sedimentation Rate (ESR) 201 05/28/07 CPT-bcx2 Blood Cultures X2 CPT-96018 CMP CPT-87803 CBC with Differential CPT-02259 JOSEPH CPT-02081 Ferritin Level CPT-72206 ADRI CPT-97015 TSH CPT-60880 Histoplasmosis Urinary AG 20 31/12/07 CPT-09110 Blastomyces Urinary Antigen CPT-72381 Quantiferon Gold TB Assay 20 31/12/07 CPT-LAB [...]
--- OUTSIDE RECORDS SUMMARY | 2023-07-25 13:45 | XMS_ITS | Clinical Summary ---
Author Name Unknown Address [address] [place] [address] Phone Organization [facility] , [facility] Address [address] [place] [address] Phone Care Team Providers Care Curtain Cleaner Name Role Phone NO, PCP Unavailable Unavailable Dhruv STEVENS, David Lundberg Unavailable [phone] Reason for Visit and Chief Complaint The Chief Complaint is: RLF and RRF pain Problems Includes: Problems addressed during this encounter and other active Problems All Visits Onset Date Resolved Date Provider Condition S tatus Bone Pain Right Fingers 01/10/2022 David Bartlett MD Active Last Documented On 2 12:55PM ; [facility] Pain in the Right Hand Only 01/10/2022 David Bartlett MD Active Last Documented On 2 12:54PM ; [facility] Plan of Treatment Patient is doing well. We will have him return to work full duty per his request. He declined OT for ROM as he feels he can do this on his own. We will see him back as needed. - Last Documented On 02/15/2022 9:44PM ; [facility], [facility] Instructions to patient Lose weight Last Documented On 2 1:51PM ; [facility] Assessments Includes: Assessments from this encounter No Assessments Recorded Instructions Includes: Instructions from this encounter Instructions to patient Lose weight Last Documented On 2 1:51PM ; [facility] Medical Equipment - Implanted Devices Includes: Current Devices No Medical Equipment Recorded Medications Includes: Medications discussed during this encounter and other current Medications Current Medications (continue as prescribed) Cephalexin 500 MG Oral Capsule 01/06/2022 Provider: Elham SANDOVAL Diagnosis: Last Documented On 12:54PM By Dr. Bartlett ; [facility], [facility] OneTouch Delica Plus [id number] Miscellaneous Provider: Dillon Lindquist MD Diagnosis: Last Documented On 12:55PM By Dr. Bartlett ; [facility], [facility] Diclofenac Sodium 1% External Gel 12/31/2021 Provide r: Diagnosis: Last Documented On 12:55PM By Dr. Bartlett ; [facility], [facility] Vitamin D High Potency 25 MCG (1000 UT) Oral Capsule 0 12/09/2021 Provider: Diagnosis: Last Documented On 12:56PM By Ashley Glass ; [facility], [facility] Cyclobenzaprine HCl 10 MG Oral Tablet 12/06/2021 Pro vider: Diagnosis: Last Documented On 12:56PM By Ashley Glass ; [facility], [facility] hydroCHLOROthiazide 25 MG Oral Tablet 12/06/2021 Pro vider: Diagnosis: Last Documented On 12:56PM By Ashley Glass ; [facility], [facility] Omeprazole 20 MG Oral Capsule Delayed Release 12/07/19 Provider: Diagnosis: Last Documented On 12:56PM By Ashley Glass ; [facility], [facility] Lisinopril 20 MG Oral Tablet 10/13/2021 Provider: Diagnosis: Last Documented On 12:56PM By Ashley Glass ; [facility], [facility] Albuterol Sulfate HFA 108 (9 0 Base) MCG/ACT Inhalation Aerosol Solution 09/11/2021 Provider: Diagnosis: Last Documented On 12:56PM By Ashley Glass ; [facility], [facility] Medications Administered Includes: Administered Medications [...] Documented On 2 1:51PM ; [facility], [facility] No recent change in diet 01/10/2022 Last Documented On 2 1:51PM ; [facility], [facility] Not a current smoker. 01/10/2022 Last Documented On 2 1:51PM ; [facility], [facility] Not exercising regularly 01/10/2022 Last Documented On 2 1:51PM ; [facility], [facility] Not using alcohol 01/10/2022 Last Documented On 2 1:51PM ; [facility], [facility] Not using drugs 01/10/2022 Last Documented On 2 1:51PM ; [facility], [facility] Tobacco non-user 01/10/2022 Last Documented On 2 1:51PM ; [facility] Smoking Status Unknown Procedures and Surgical History Includes: Procedures from this encounter Procedures Code Diagnosis Performing Provider Service L ocation Service Date use of tobacco assessment performed 1000F Last Documented On 2 1:51PM ; [facility], [facility] no influenza immunization patient refuse d Last Documented On 2 1:51PM ; [facility], [facility] Surgical History Last Updated History of hernia repair 01/10/2022 Last Documented On 2 1:51PM ; [facility], [facility] Medical History Includes: Medical History addressed during this encounter Description Last Updated History of Hypertension 01/10/2022 Last Documented On 2 1:51PM ; [facility], [facility] Past Surgical History: cariodid tumor Last Documented On 2 1:51PM ; [facility], [facility] No recent immunization for flu 2 Last Documented On 2 1:51PM ; [facility], [facility] No recent immunization for pneumococcal pneumonia 01/10/2022 Last Documented On 2 1:51PM ; [facility], [facility] Family History Includes: Family History addressed during this encounter Description Last Updated Diabetes mellitus 01/10/2022 Last Documented On 2 1:51PM ; [facility] Family history of cancer 01/10/2022 Last Documented On 2 1:51PM ; [facility] Family history of heart disease 01/11/20 22 Last Documented On 2 1:51PM ; [facility] Family history of systemic hypertension 01/10/2022 Last Documented On 2 1:51PM ; [facility] Review of Systems Includes: Review of [...] Active Last Documented On 2 1:50PM ; [facility], [facility] metFORMIN HCl Allergy Nausea, Vomiting , Diarrhea / Diarrheal disorder 01/10/2022 Active Last Documented On 2 1:50PM ; [facility], [facility] Encounters Encounter Provider Location Date Check-In Time Check-Out Time Diagnosis WC FOLLOW UP/EST David Bartlett MD [facility] 02/08/20 22 1:04PM 1:51PM Insurance Includes: Active Insurance Policies Plan Name Member ID Group # Subscriber Relationship Effect janneth Dates 1 - STRATEGIC COMP [id number] Deng De Self 01/01/2022 - Unknown Clinical Notes Includes: Clinical Notes from this encounter No Clinical Notes Recorded
--- OUTSIDE RECORDS SUMMARY | 2023-07-25 13:45 | XMS_ITS | Clinical Summary ---
Author Name Unknown Address [address] [place] [address] Phone Organization [facility] , [facility] Address [address] [place] [address] Phone Care Team Providers Care Pluck Trimmer Name Role Phone NO, PCP Unavailable Unavailable Dhruv STEVENS, David Lundberg Unavailable [phone] Reason for Visit and Chief Complaint The Chief Complaint is: RLF and RRF pain Problems Includes: Problems addressed during this encounter and other active Problems Current Visit Onset Date Resolved Date Provider Neva bernal Status Bone Pain Right Fingers 01/10/2022 David Bartlett MD Active Last Documented On 2 12:55PM ; [facility], [facility] Pain in the Right Hand Only 01/10/2022 David Bartlett MD Active Last Documented On 2 12:54PM ; [facility] Plan of Treatment I explained to the [...] - Last Documented On 01/16/2022 3:08PM ; [facility] Pending Tests Order Diagnosis Results Due Ordering P rovider Therapy - Occupational Therapy Finger 01/10 David Bartlett MD Last Documented On 2 3:08PM ; [facility] Instructions to patient Lose weight Last Documented On 2 1:15PM ; [facility], [facility] Assessments Includes: Assessments from this encounter Findings RRF tuft fx distal phalanx - Last Documented On 01/16/2022 3:08PM ; [facility] contusion RLF - Last Documented On 01/16/2022 3:08PM ; [facility] Instructions Includes: Instructions from this encounter Instructions to patient Lose weight Last Documented On 2 1:15PM ; [facility] Medical Equipment - Implanted Devices Includes: Current Devices No Medical Equipment Recorded Medications Includes: Medications discussed during this encounter and other current Medications Discontinued / Stopped on this date Elham SANDOVAL on 01/06/2022 Cephalexin 500 MG Oral Capsule Provider: Elham SANDOVAL Diagnosis: Last Documented On 2 1:16PM By Ashley Glass ; [facility], [facility] Diclofenac Sodium 1% External Gel Provide r: Diagnosis: Last Documented On 2 1:16PM By Ashley Glass ; [facility] Vitamin D High Potency 25 MCG (1000 UT) Oral Capsule Provider: Diagnosis: Last Documented On 2 1:16PM By Ashley Glass ; [facility], [facility] hydroCHLOROthiazide 25 MG Oral Tablet Pro vider: Diagnosis: Last Documented On 2 1:16PM By Ashley Glass ; [facility] Omeprazole 20 MG Oral Capsule Delayed Release Provider: Diagnosis: Last Documented On 2 1:16PM By Ashley Glass ; [facility] Current Medications (continue as prescribed) Cephalexin 500 MG Oral Capsule 01/06/2022 Provider: Elham SANDOVAL Diagnosis: Last Documented On 12:54PM By Dr. Bartlett ; [facility], [facility] OneTouch Delica Plus [id number] Miscellaneous Provider: Dillon Lindquist MD Diagnosis: Last Documented On 12:55PM By Dr. Bartlett ; [facility] Diclofenac Sodium 1% External Gel 12/31/2021 Provide r: Diagnosis: Last Documented On 10/24/202 2 12:55PM By Dr. Bartlett ; [facility] Vitamin D High Potency 25 MCG (1000 UT) Oral Capsule 0 12/09/2021 Provider: Diagnosis: Last Documented On 12:56PM By Ashley Glass ; [facility] Cyclobenzaprine HCl 10 MG Oral Tablet 12/06/2021 Pro vider: Diagnosis: Last Documented On 12:56PM By Ashley Glass ; [facility] hydroCHLOROthiazide 25 MG Oral Tablet 12/06/2021 Pro vider: Diagnosis: Last Documented On 12:56PM By Ashley Glass ; [facility] Omeprazole 20 MG Oral Capsule Delayed Release 12/07/19 Provider: Diagnosis: Last Documented On 12:56PM By Ashley Glass ; [facility], [facility] Lisinopril 20 MG Oral Tablet 10/13/2021 Provider: Diagnosis: Last Documented On 12:56PM By Ashley Glass ; [facility], [facility] Albuterol Sulfate HFA 108 (9 0 Base) MCG/ACT Inhalation Aerosol Solution 09/11/2021 Provider: Diagnosis: Last Documented On 12:56PM By Ashley Glass ; [facility] Medications Administered Includes: Administered Medications from this encounter No Administered Medications Recorded Vital Signs Includes: Vital Signs from this encounter Vital Name 01/10/2022 01:12P Blood Pressure Sitting (mmHg) 118/71 Pulse Rate-Sitting (bpm) 105 Height (in) 63 Weight (lb) 199.8 Body Mass Index (kg/m2) 35.4 Body Surface Area (m2) 1.9 Note: [facility] Last Documented: On 01/10/2022 1:15PM ; [facility] Results Includes: Results discussed during this encounter [...] and the block. He was seen at [facility] where xrays were obtained and the laceration of the RRF was sutured. Social History Description Last Updated Caffeine use 01/10/2022 Last Documented On 2 3:08PM ; [facility] No recent change in diet 01/10/2022 Last Documented On 2 3:08PM ; [facility], [facility] Not a current smoker. 01/10/2022 Last Documented On 2 3:08PM ; [facility], [facility] Not exercising regularly 01/10/2022 Last Documented On 2 3:08PM ; [facility], [facility] Not using alcohol 01/10/2022 Last Documented On 2 3:08PM ; [facility], [facility] Not using drugs 01/10/2022 Last Documented On 2 3:08PM ; [facility], [facility] Tobacco non-user 01/10/2022 Last Documented On 2 3:08PM ; [facility], [facility] Smoking Status Unknown Procedures and Surgical History Includes: Procedures from this encounter Procedures Code Diagnosis Performing Provider Service L ocation Service Date use of tobacco assessment performed 1000F Last Documented On 2 12:55PM ; [facility], [facility] no influenza immunization patient refuse d Last Documented On 2 1:15PM ; [facility], [facility] an X-ray was performed 50185 Last Documented On 2 1:50PM ; [facility], [facility] History of Blood Tests Last Documented On 2 1:50PM ; [facility], [facility] Surgical History Last Updated History of hernia repair 01/10/2022 Last Documented On 2 3:08PM ; [facility] Medical History Includes: Medical History addressed during this encounter Description Last Updated History of Hypertension 01/10/2022 Last Documented On 2 3:08PM ; [facility] Past Surgical History: cariodid tumor Last Documented On 2 3:08PM ; [facility] No recent immunization for flu 2 Last Documented On 2 3:08PM ; [facility] No recent immunization for pneumococcal pneumonia 01/10/2022 Last Documented On 2 3:08PM ; [facility] Family History Includes: Family History addressed during this encounter Description Last Updated Diabetes mellitus 01/10/2022 Last Documented On 2 3:08PM ; [facility] Family history of cancer 01/10/2022 Last Documented On 2 3:08PM ; [facility] Family history of heart disease 01/11/20 Last Documented On 2 3:08PM ; [facility] Family history of systemic hypertension 01/10/2022 Last Documented On 2 3:08PM ; [facility] Review of Systems Includes: Review [...] 1 01/10/2022 Complete (Refused - Patient objection) [facility] Last Documented On 2 1:15PM ; [facility] Allergies Includes: Active Allergies Substance Type Reaction Onset Date Resolved Date Statu s Tetracycline HCl Allergy Skin Rashes / E ruption of skin, Hives / Urticaria, Shortness of Breath / Dyspnea 01/10/2022 Active Last Documented On 2 1:50PM ; [facility] metFORMIN HCl Allergy Nausea, Vomiting , Diarrhea / Diarrheal disorder 01/10/2022 Active Last Documented On 2 1:50PM ; [facility] Encounters Encounter Provider Location Date Check-In Time Check-Out Time Diagnosis WC NEW PATIENT David Bartlett MD [facility] 01/11/20 22 1:05PM 1:42PM Insurance Includes: Active Insurance Policies Plan Name Member ID Group # Subscriber Relationship Effect janneth Dates 1 - STRATEGIC COMP [id number] Deng De Self 01/01/2022 - Unknown Clinical Notes Includes: Clinical Notes from this encounter No Clinical Notes Recorded
--- OUTSIDE RECORDS SUMMARY | 2023-07-25 13:45 | XMS_ITS | Clinical Summary ---
Author Name Unknown Address [address] [place] [address] Phone Organization [facility] , [facility] Address [address] [place] [address] Phone Care Team Providers Care Access Service Representative Name Role Phone NO, PCP Unavailable Unavailable Dhruv STEVENS, David Lundberg Unavailable [phone] Reason for Visit and Chief Complaint The Chief Complaint is: RLF and RRF pain Problems Includes: Problems addressed during this encounter and other active Problems All Visits Onset Date Resolved Date Provider Condition S tatus Bone Pain Right Fingers 01/10/2022 David Bartlett MD Active Last Documented On 2 12:55PM ; [facility], [facility] Pain in the Right Hand Only 01/10/2022 David Bartlett MD Active Last Documented On 2 12:54PM ; [facility], [facility] Plan of Treatment Patient is doing well and the fracture is healing. We will continue his work restrictions, continue the splint, and we will see him back in 2 weeks for recheck. We will not need an xray at this visit. - Last Documented On 01/25/2022 11:31AM ; [facility], [facility] Instructions to patient Lose weight Last Documented On 12:54PM ; [facility], [facility] Assessments Includes: Assessments from this encounter Findings RRF distal phalanx tuft fx - Last Documented On 01/25/2022 11:31AM ; [facility], [facility] Instructions Includes: Instructions from this encounter Instructions to patient Lose weight Last Documented On 2 12:54PM ; [facility] Medical Equipment - Implanted Devices Includes: Current Devices No Medical Equipment Recorded Medications Includes: Medications discussed during this encounter and other current Medications Current Medications (continue as prescribed) Cephalexin 500 MG Oral Capsule 01/06/2022 Provider: Elham SANDOVAL Diagnosis: Last Documented On 12:54PM By Dr. Bartlett ; [facility] OneTouch Delica Plus [id number] Miscellaneous Provider: Dillon Lindquist MD Diagnosis: Last Documented On 12:55PM By Dr. Bartlett ; [facility], [facility] Diclofenac Sodium 1% External Gel 12/31/2021 Provide r: Diagnosis: Last Documented On 12:55PM By Dr. Bartlett ; [facility], [facility] Vitamin D High Potency 25 MCG (1000 UT) Oral Capsule 0 12/09/2021 Provider: Diagnosis: Last Documented On 12:56PM By Ashley Glass ; [facility] Cyclobenzaprine HCl 10 MG Oral Tablet 12/06/2021 Pro vider: Diagnosis: Last Documented On 12:56PM By Ashley Glass ; [facility] hydroCHLOROthiazide 25 MG Oral Tablet 12/06/2021 Pro vider: Diagnosis: Last Documented On 12:56PM By Ashley Glass ; [facility] Omeprazole 20 MG Oral Capsule Delayed Release 12/07/19 Provider: Diagnosis: Last Documented On 12:56PM By Ashley Glass ; [facility] Lisinopril 20 MG Oral Tablet 10/13/2021 Provider: Diagnosis: Last Documented On 12:56PM By Ashley Glass ; [facility] Albuterol Sulfate HFA 108 (9 0 Base) MCG/ACT Inhalation Aerosol Solution 09/11/2021 Provider: Diagnosis: Last Documented On 12:56PM By Ashley Glass ; [facility] Medications Administered Includes: Administered Medications from this encounter No Administered Medications Recorded Vital Signs Includes: Vital Signs from this encounter Vital Name 01/24/2022 01:02P Blood Pressure Sitting (mmHg) 125/77 Pulse Rate-Sitting (bpm) 65 Height (in) 63 Weight (lb) 201.2 Body Mass Index (kg/m2) 35.6 Body Surface Area (m2) 1.9 Note: [facility] Last Documented: On 01/24/2022 1:05PM ; [facility], [facility] Results Includes: Results discussed during this encounter [...] Documented On 2 12:54PM ; [facility], [facility] No recent change in diet 01/10/2022 Last Documented On 2 12:54PM ; [facility], [facility] Not a current smoker. 01/10/2022 Last Documented On 2 12:54PM ; [facility], [facility] Not exercising regularly 01/10/2022 Last Documented On 2 12:54PM ; [facility] Not using alcohol 01/10/2022 Last Documented On 2 12:54PM ; [facility] Not using drugs 01/10/2022 Last Documented On 2 12:54PM ; [facility], [facility] Tobacco non-user 01/10/2022 Last Documented On 2 12:54PM ; [facility], [facility] Smoking Status Unknown Procedures and Surgical History Includes: Procedures from this encounter Procedures Code Diagnosis Performing Provider Service L ocation Service Date use of tobacco assessment performed 1000F Last Documented On 2 12:54PM ; [facility] no influenza immunization patient refuse d Last Documented On 2 12:54PM ; [facility] Surgical History Last Updated History of hernia repair 01/10/2022 Last Documented On 2 12:54PM ; [facility], [facility] Medical History Includes: Medical History addressed during this encounter Description Last Updated History of Hypertension 01/10/2022 Last Documented On 2 12:54PM ; [facility], [facility] Past Surgical History: cariodid tumor Last Documented On 2 12:54PM ; [facility], [facility] No recent immunization for flu 2 Last Documented On 2 12:54PM ; [facility] No recent immunization for pneumococcal pneumonia 01/10/2022 Last Documented On 2 12:54PM ; [facility], [facility] Family History Includes: Family History addressed during this encounter Description Last Updated Diabetes mellitus 01/10/2022 Last Documented On 2 12:54PM ; [facility] Family history of cancer 01/10/2022 Last Documented On 2 12:54PM ; [facility], [facility] Family history of heart disease 01/11/20 Last Documented On 2 12:54PM ; [facility] Family history of systemic hypertension 01/10/2022 Last Documented On 2 12:54PM ; [facility], [facility] Review of Systems Includes: Review of Systems [...] Active Last Documented On 2 1:50PM ; [facility] metFORMIN HCl Allergy Nausea, Vomiting , Diarrhea / Diarrheal disorder 01/10/2022 Active Last Documented On 2 1:50PM ; [facility], [facility] Encounters Encounter Provider Location Date Check-In Time Check-Out Time Diagnosis WC FOLLOW UP/EST David Bartlett MD [facility] 01/25/20 12:44PM 1:29PM Insurance Includes: Active Insurance Policies Plan Name Member ID Group # Subscriber Relationship Effect janneth Dates 1 - [employer]ATE[employer] COMP [id number] Deng De Self 01/01/2022 - Unknown Clinical Notes Includes: Clinical Notes from this encounter No Clinical Notes Recorded
[2023-07-25 14:11] VITALS: BP 163/75; PULSE 80; RESP 18; TEMP 36.7; O2SAT 96; BMI 36.8
[2023-07-25 14:17] VITALS: BP 142/86; PULSE 71; RESP 18; O2SAT 96
[2023-07-25] MEDS: LIDOCAINE 1% 5ML PF VIAL 5 ML (14:17)
[2023-07-25 14:18] VITALS: BP 142/86; PULSE 75; RESP 18; O2SAT 96
[2023-07-25 14:20] VITALS: BP 151/93; PULSE 70; RESP 18; O2SAT 98
[2023-07-25] MEDS: IOPAMIDOL-200 (41%);10ML VIAL 10 ML IV (14:24)
--- NOTE | 2023-07-25 14:30 | EXP.PAIN.PRO ---
Procedure Date: 07/25/23 Time: 14:00 Anesthesiologist:: Chris Kumar CRNA Complications:: None Pre-procedure Diagnosis:: Degenerative disc lumbar spine multilevels. Lumbar radiculopathy. Lumbar disc bulge L4-5, L5-S1. Post-procedure Diagnosis:: Same. Indications for Procedure:: Patient is a very pleasant 62-year-old male comes our clinic today for right transforaminal epidural steroid injection L4-5 and L5-S1. Patient reports low back pain as well as right hip and leg radicular symptoms to the foot. He rates his pain 7/10. Procedure Details:: Details of the procedure were explained to the patient. The patient was taken the procedure room placed in the prone position. The area of the lumbar spine was cleansed using chlorhexidine as a cleansing solution. At this time using fluoroscopy guidance markers were placed on the right lateral border of the L4 and L5 vertebral body. The skin and subcutaneous tissue was anesthetized using 1% lidocaine and 25-gauge needle. At this time using a 22-gauge 3-1/2 inch spinal needle the right upper one third of the L4-5 foramen was accessed. The same was done at the right L5-S1 foramen. Needle positions were confirmed and a lateral view using fluoroscopy and contrast dye. At this time 1 cc of 1% lidocaine +20 mg of Depo-Medrol was injected at each level after negative aspiration. [place] were removed. Band-Aid applied. Patient tolerated the procedure without difficulty. There are no complications. Plan and Disposition:: Patient was discharged without incident.
== END 2023-07-25 14:21 | disposition home or self-care (01) ==
LOC: SC.PAINP 13:43
PROVIDERS: PCP Registered Nurse; Visit Provider Nurse Anesthetist, Certified Registered
DX: M51.16 Intervertebral disc disorders with radiculopathy, lumbar region (principal); M51.26 Other intervertebral disc displacement, lumbar region
CPT/HCPCS: 64483; 64484; J1010; Q9966

== ENCOUNTER 2023-08-23 09:23 | Outpatient (POV) | payer BC, SELFPAY ==
[2023-08-23 09:34] VITALS: BP 128/75; PULSE 110; RESP 16; O2SAT 97; BMI 34.2
--- NOTE | 2023-08-23 09:45 | A.OFFVIS_ITS ---
[facility] Pain Management SOAP Note Subjective:: Patient is a pleasant 62-year-old male who presents today for follow-up right transforaminal epidural L4-L5 and L5-S1 on 07/25/2023. Patient rates his pain today a 6 out of 10. Patient does state that he did have at least 90% relief following this injection and that it immediately kicked in within 24 hours. Patient states he was able to move around easier with overall decreased pain and felt much more functional. Patient does state however that it was short-lived because within a week or so he was having worsening back pain that he thought was a possible kidney stone. Patient states he ended up going to the doctor and that being sent for the ER for evaluation. He states that they gave him multiple opioid pain medications and it was making no improvement. He ended up stating that they ended up thinking GI ulcers and gave him a GI cocktail which did help. Patient states he was then released home but the issues came back immediately the next day. Patient states from there they did additional imaging and testing which did show a gallstone that was blocking the duct. He states he ended up having surgery to remove the gallstone and then he ended up having his gallbladder removed. Patient states he ended up going home and it was later within a day or 2 that he felt worse and went to his doctor. He states that his blood pressure was 60/40 and ended up having blood work that showed his white count severely elevated. He states he was hospitalized due to being septic and that they ended up putting a chest tube in to drain in and around his gallbladder where he had infection. He states he did just get this removed and is feeling a little bit better however has extreme weakness. He states now they are thinking possibly that he has pneumonia in his right lung and is scheduled for a follow-up on the . His Dennis has been reviewed and is appropriate. Review of Systems: General: No recent weight changes, no fever, no sleep disturbances Respiratory: No cough, no shortness of air, no recurring pulmonary infections Cardiovascular/peripheral vascular: No chest pain, no palpitations, no edema, no shortness of breath Gastrointestinal: No new onset incontinence, normal bowel movements reported Genitourinary: No new onset incontinence Musculoskeletal: Abdominal pain, low back pain Psychiatric: [Normal mood/affect] Neurological: [Denies weakness in extremities], [denies balance issues] Objective:: Physical Exam: General: Alert and oriented x3, no acute distress, pleasant and cooperative Lungs: Respirations even and unlabored, symmetrical chest expansion Eyes: PERRL Musculoskeletal: Flexion and extension of lumbar [spine] somewhat guarded secondary to pain, [antalgic gait noted] Neurological: Speech clear, no gross sensory deficit Assessment:: Degenerative disc disease of lumbar spine with lumbar radiculopathy symptoms, right leg pain Plan:: Patient did have significant improvement following his right transforaminal injection. Currently the patient is still recovering from his previous surgery and hospitalization. I have counseled the patient that I am more than happy to order him some home health to work on his overall weakness in his legs and in general. Patient states that he would like to see what the provider states at his upcoming follow-up and that he will call us if he wants to proceed forward with the home health order. I will see the patient back in 1 month for reevaluation of symptoms and plan of care. Patient has been instructed to contact the clinic with any concerns before the next appointment. Dr. Still has reviewed this note and agrees with this plan of care. This note was dictated using voice recognition software and make contain errors or omissions. [facility] Disclaimer: The information contained in this section may have been updated after the patient was seen, as this information can be updated by other users. Medical History Umbilical hernia Inguinal hernia Carotid artery disease BPH (benign prostatic hyperplasia) Insomnia Vitamin D deficiency HLD (hyperlipidemia) Diabetes Surgical History Hx of nasal septoplasty H/O carotid endarterectomy Family History Other Diabetes Hypertension Social History Smoking Status: Unknown if ever smoked alcohol intake: never current occupational status: other Travel in the last 8 weeks: None
== END 2023-08-23 23:59 | disposition home or self-care (01) ==
LOC: SC.PAIN 09:24
PROVIDERS: Visit Provider Nurse Practitioner Family
DX: M51.16 Intervertebral disc disorders with radiculopathy, lumbar region (principal); M79.604 Pain in right leg
CPT/HCPCS: 99212; G0463